=== PATIENT | female | born 1960 | race Caucasian/White ===

== ENCOUNTER 2017-07-20 22:05 | Emergency (ER) | payer OTHER ==
[~2017-07-20] VITALS: Ht 175.3 cm; Wt 99.8 kg
[2017-07-20] MEDS ORDERED: COZAAR 25 MG TA25 M1 PO (22:20)
[2017-07-20] MEDS ORDERED: WELLBUTRIN XL300 MG PO (22:20)
[2017-07-20] MEDS ORDERED: TRAZODONE HCL50 MG PO (22:20)
[2017-07-20] MEDS ORDERED: PROZAC20 MG PO (22:20)
[2017-07-20] MEDS ORDERED: SAXENDA3 MG/0.5 M SUBQ (22:21)
[2017-07-20] MEDS ORDERED: MOBIC7.5 MG PO (22:21)
[2017-07-20] MEDS ORDERED: FLEXERIL PO (22:21)
[2017-07-20] MEDS ORDERED: PERCOCET PO (22:21)
[2017-07-20] MEDS ORDERED: PENICILLIN VK500 MG PO (23:13)
[2017-07-20 23:17] VITALS: BP 158/89
== END 2017-07-20 23:18 | disposition home or self-care (01) ==
LOC: M.ERS 22:05
DX: K04.7 Periapical abscess without sinus (principal); H92.02 Otalgia, left ear; I10 Essential (primary) hypertension; F32.9 Major depressive disorder, single episode, unspecified; F10.99 Alcohol use, unspecified with unspecified alcohol-induced disorder

== ENCOUNTER 2017-10-18 20:01 | Emergency (ER) | payer OTHER ==
[~2017-10-18] VITALS: Ht 172.7 cm; Wt 106.6 kg
[~2017-10-18 20:01] MED LIST: COZAAR 25 MG TA25 M1 PO; FLEXERIL PO; MOBIC7.5 MG PO; PENICILLIN VK500 MG PO; PERCOCET PO; PROZAC20 MG PO; SAXENDA3 MG/0.5 M SUBQ; TRAZODONE HCL50 MG PO; WELLBUTRIN XL300 MG PO
[2017-10-18] MEDS ORDERED: HYDROXYCHLOROQ200 M1 (20:13)
[2017-10-18] MEDS ORDERED: SULFASALAZINE500 M4 (20:13)
[2017-10-18 20:54] LABS: URINE BILIRUBIN NEGATIVE (Negative); URINE BLOOD NEGATIVE (Negative); URINE CLARITY CLEAR; URINE COLOR YELLOW; URINE GLUCOSE-RANDOM NEGATIVE (Negative); URINE KETONES NEGATIVE (Negative); URINE LEUKOCYTES-REFLEX NEGATIVE (Negative); URINE NITRITE-REFLEX NEGATIVE (Negative); URINE PROTEIN NEGATIVE (Negative); URINE SPECIFIC GRAVITY 1.025 (1.005-1.030); URINE UROBILINOGEN 0.2 E.U./dl (0.2-1.0)
[2017-10-18 21:14] LABS: ABSOLUTE EOSINOPHILS 0.2 thou/uL (0.0-0.7); ABSOLUTE LYMPHOCYTES 4.4 thou/uL (0.8-5.3); ABSOLUTE MONOCYTES 1.1 thou/uL (0.0-1.2); ABSOLUTE NEUTROPHILS 3.1 thou/uL (1.6-8.1); BASOPHILS 0.4 %; EOSINOPHILS 1.8 %; HEMATOCRIT 41.2 % (37.0-47.0); LYMPHOCYTES 49.8 %; MCH 32.2 pg (26.0-34.0); MCHC 34.1 g/dL (28.0-37.0); MCV 94.6 fL (80.0-100.0); MONOCYTES 12.1 %; MPV 7.1 fl. (7.2-11.1); NUCLEATED RBCS 0 /100WBC; PLATELET COUNT* 282 thou/uL (150-400); POLYS 35.9 %; RBC 4.35 mil/uL (4.20-5.00); RDW-CV 13.5 % (10.5-14.5); WBC 8.7 thou/uL (4.0-11.0)
[2017-10-18 21:23] LABS: ANION GAP 7 mmol/L (7-16); BUN 28 mg/dL (7-18); CALCIUM 8.8 mg/dL (8.5-10.1); CHLORIDE 103 mmol/L (98-107); CO2 30 mmol/L (21-32); CREATININE 1.1 mg/dL (0.6-1.3); GLUCOSE 132 mg/dL (70-99); POTASSIUM 3.8 mmol/L (3.5-5.1); SODIUM 140 mmol/L (136-145)
[2017-10-18 21:30] LABS: ALBUMIN 3.5 g/dL (3.4-5.0); ALKALINE PHOSPHATASE 85 U/L (46-116); LIPASE 212 U/L (73-393); SGOT 19 U/L (15-37); SGPT 30 U/L (30-65); TOTAL BILIRUBIN 0.2 mg/dL (<0.1-1.0); TOTAL PROTEIN 7.5 g/dL (6.4-8.2); TROPONIN-I LEVEL <0.06 ng/mL (<0.06)
[2017-10-18] MEDS ORDERED: HYDROCODONE-AP1 EAC6 PO (22:32)
[2017-10-18 22:51] VITALS: BP 150/92
== END 2017-10-18 22:52 | disposition home or self-care (01) ==
LOC: M.ERS 20:01
PROVIDERS: Physician Assistant
DX: R10.32 Left lower quadrant pain (principal); I10 Essential (primary) hypertension; F32.9 Major depressive disorder, single episode, unspecified; M06.9 Rheumatoid arthritis, unspecified